=== PATIENT | female | born 1990 | race Caucasian/White ===

== ENCOUNTER 2020-10-13 20:58 | Emergency (ER) | payer MEDICARE, OTHER, SELFPAY ==
[2020-10-13] VITALS (10 sets, daily range): BP systolic 98–128; BP diastolic 45–86; PULSE 76–102; RESP 11–30; TEMP 36.8; O2SAT 94–99; BMI 34.4
--- NOTE | 2020-10-13 21:20 | XRR_ITS ---
PROCEDURE INFORMATION: Exam: XR Chest, 1 View Exam date and time: 10/13/2020 9:46 PM Age: 30 years old Clinical indication: Dyspnea; Additional info: Dyspnea/asthma TECHNIQUE: Imaging protocol: XR of the chest Views: 1 view. COMPARISON: No relevant prior studies available. FINDINGS: Lungs: Unremarkable. No consolidation. Pleural space: Unremarkable. No pleural effusion. No pneumothorax. Heart/Mediastinum: Unremarkable. No cardiomegaly. Bones/joints: Unremarkable. XR/XR chest 1V portable [id number] IMPRESSION: Lungs are clear.
[2020-10-13 21:44] LABS: Basophils # 0.1 10^3/uL (0.0-0.1); Basophils % 0.8 %; Eosinophils # 0.4 10^3/uL (0.0-0.8); Eosinophils % 4.4 %; Hematocrit 42.2 % (37.0-47.0); Hemoglobin 13.9 g/dL (11.5-15.3); Lymphocytes # 3.7 10^3/uL (0.8-4.8); Lymphocytes % 40.3 %; Mean Corpuscular HGB Conc 32.9 g/dL (30.0-36.0); Mean Corpuscular Hemoglobin 30.1 pg (28.0-34.0); Mean Corpuscular Volume 91.3 fL (81-99); Mean Platelet Volume 8.3 fL (7.4-10.4); Monocytes # 0.7 10^3/uL (0.2-0.9); Monocytes % 7.6 %; Neutrophils # 4.32 10^3/uL (1.8-7.7); Neutrophils % 46.7 %; Nucleated Red Blood Cells % 0 %; Platelet Count 379 10^3/cmm (130-400); Red Blood Count 4.62 10^6/uL (4.1-5.3); Red Cell Distribution Width 11.7 % (12.1-15.1); White Blood Count 9.2 10^3/uL (4.0-10.0)
[2020-10-13 22:01] LABS: ABG PCO2 36.4 mmHg (35-45); ABG PH Result 7.42 (7.35-7.45); Arterial Blood Gas Hematocrit 40.1 % (37-47); Base Excess ABG -0.4 mmol/L (-2.0-2.0); Blood Gas Allen Test Pos; Blood Gas Sample Site Radial, right; Blood Gas Sample Type Arterial; Carboxyhemoglobin 0.7 %THgb (0.4-20.1); HCO3 ABG 23.8 mmol/L (22-26); HGB O2 Sat 96.2 % (95-100); Methemoglobin 0.9 % (0.4-1.5); PO2 ABG 88.9 mmHg (80.0-100.0); Total Hemoglobin 13.1 g/dL (12-16)
[2020-10-13 22:09] LABS: Alanine Aminotransferase 18 U/L (0-33); Albumin Level 4.4 g/dL (3.5-5.2); Alkaline Phosphatase 69 IU/L (35-105); Anion Gap 12.8 (5-19); Aspartate Amino Transferase 14 U/L (0-32); Blood Urea Nitrogen 6 mg/dL (6-20); Calcium 9.6 mg/dL (8.5-10.5); Carbon Dioxide 25 mmol/L (22-29); Chloride 104 mmol/L (98-107); Creatinine Clr Calc Pharmacy 141.3207; Globulin 2.7 g/dL (1.3-4.6); Glomerular Filtration Rate 97.6 mL/min (90-130); Glucose 88 mg/dL (65-115); NT Pro B Type Natriuretic Pept 66 pg/mL (0-125); Osmolality Calculated 283 mOsm/kg (285-295); Potassium 3.8 mmol/L (3.5-5.1); Sodium 138 mmol/L (136-145); Total Bilirubin 0.2 mg/dL (0.15-1.2); Total Protein 7.1 g/dL (6.6-8.7)
[2020-10-13] MEDS: diphenhydrAMINE 50 mg/mL SDV 1mL 25 MG IVP (22:09)
[2020-10-13] MEDS: dexamethasone 4 mg/mL INJ 10 MG IM (22:13)
[2020-10-13] MEDS: sodium chloride 0.9% 1,000 ML 999 ML IV (22:14)
[2020-10-13 22:32] LABS: Lactate (Lactic Acid level) 1.6 mmol/L (0.5-2.2)
[2020-10-13 22:47] LABS: SARS Covid-2 Antigen Negative (Negative)
[2020-10-13 23:02] LABS: Lithium 0.5 mmol/L (0.6-1.2)
--- NOTE | 2020-10-13 23:06 | ED_ITS ---
HPI - SOB/Dyspnea General: Chief Complaint: Shortness of Breath/Dyspnea Stated Complaint: ASTHMA ATTACK Time Seen by Provider: 10/13/20 21:11 History of Present Illness: HPI Narrative: The patient is a 30-year-old female with past medical history asthma and bipolar disorder who comes to the ER complaining of a severe asthma attack after smelling bleach [place] the movie theater. She said she rarely has symptoms of her asthma but occasionally she will come across a set that will trigger it. She took 4 puffs of her albuterol inhaler which helps some but she is having a severe cough which will not stop. She says this is typical of her exacerbations. Lung sounds are clear to auscultation bilaterally. She says she is allergic to prednisone, it is not that she is actually allergic she says though the last time she received it it made her have suicidal ideations. MD elicited complaint: shortness of breath, cough and asthma attack Pertinent past history: asthma Context: allergen exposure and anxiety Severity: similar to previous episodes Relieving factors: bronchodilators Associated symptoms: Deny abdominal pain, chest pain, dizziness, extremity pain, orthopnea, palpitations or polyuria Treatment prior to arrival: bronchodilator Review of Systems General: Reports: 10 or more systems reviewed and unremarkable except in HPI and below Const: Denies: fatigue Eyes: Denies: change in vision, blurry vision or eye redness ENMT: Denies: throat pain, swelling of lips/tongue, ear or mastoid pain or nasal congestion Card: Denies: chest pain, palpitations, irregular heart rhythm, edema, dyspnea on exertion or orthopnea Resp: Reports: dyspnea, non-productive cough and wheezing GI: Denies: abdominal pain, diarrhea or GI cramping : Denies: flank pain, difficulty voiding, urinary frequency or urinary urgency Musc: Denies: neck pain, back pain, extremity pain, joint pain, joint redness, limited range of motion or muscle weakness Skin/Breast: Denies: rash, pruritus, erythema, skin pain or skin tenderness Neuro: Denies: headache(s), numbness in extremities, weakness in extremities, sensory changes, difficulty walking, dizziness, confusion or Slurred speech present Psych: Reports: anxiety; Denies: depression, suicidal ideation or homicidal ideation Endo: Denies: polyuria All/Imm: Denies: urticaria, throat swelling or tongue swelling Physical Exam Narrative: EXAM NARRATIVE: Patient has a severe repetitive cough on arrival. Her lungs are clear to auscultation bilaterally however. After Benadryl her symptoms improved greatly and she is now not coughing at all. Lungs clear to auscultation and she is asking for discharge Const: COMMON NORMALS: average body habitus, patient oriented x3, no limitations, healthy appearing, alert and well nourished GENERAL APPEARANCE: cooperative, comfortable, well kempt and well developed ORIENTATION/CONSCIOUSNESS: Yes awake, Yes oriented to person, Yes oriented to place and Yes oriented to time HENMT: COMMON NORMALS: normocephalic, external ears normal and Normal external nose present HEAD & SCALP: normal to inspection and normocephalic NOSE: Normal external nose present EXTERNAL EAR: Yes external ears normal MOUTH: Normal oral and palatal mucosa present THROAT: posterior oropharynx normal Eye: COMMON NORMALS: Equal, round and reactive pupils present and EOMs intact bilaterally GENERAL EYE: appearance normal, both eyes and all related structures PUPIL: Yes Equal, round and reactive pupils present Neck/C-Spine: COMMON NORMALS: full ROM, no lymphadenopathy, no meningeal signs and no JVD GENERAL: Yes normal visual inspection Lymph: LYMPHATIC: no lymphadenopathy noted Chest: COMMONS NORMALS: normal inspection of the chest and normal palpation of entire chest wall Resp: COMMON NORMALS: normal respiratory effort, No retractions, No use of accessory muscles and clear to auscultation bilaterally AUSCULTATION: clear to auscultation bilaterally Cardio: COMMON NORMALS: no JVD, regular rhythm, S1 normal heart sound present, S2 normal heart sound present and Peripheral pulses 2+ throughout RATE: tachycardic RHYTHM: regular rhythm HEART SOUNDS: S1 normal heart sound present and S2 normal heart sound present PERIPHERAL PULSES: Peripheral pulses 2+ throughout GI: COMMON NORMALS: Normal to inspection, nondistended, normoactive bowel sounds present, Soft to palpation, non-tender and no masses INSPECTION: Yes normal to inspection PALPATION: Yes Soft to palpation : COMMON NORMALS: Yes no CVA tenderness BLADDER/KIDNEY EXAM: Yes no CVA tenderness Back/Pelvis: COMMON NORMALS: no CVA tenderness, thoracic and lumbar spine normal to inspection, no thoracic nor lumbar tenderness and thoraco-lumbar ROM normal Extremity: COMMON NORMALS: normal to inspection, full ROM, capillary refill normal, no joint enlargement and no pedal edema GENERAL: Yes normal exam except as noted Neuro: COMMON NORMALS: patient oriented x3, CN's II-XII intact bilaterally, moves all extremities, no focal motor deficits, no sensory deficits noted and gait normal SENSORIUM/ORIENTATION: Yes alert, Yes oriented to person, Yes oriented to place and Yes oriented to time MENINGEAL SIGNS: Yes no meningeal signs Psych: COMMON NORMALS: mental status grossly normal, Normal thought process present, cooperative, normal affect and speech normal APPEARANCE: Yes well kempt ATTITUDE: Yes calm SPEECH: Yes normal speech THOUGHT PROCESS: Normal thought process present Skin: COMMON NORMALS: no rashes or lesions noted GENERAL SKIN EXAM: no rashes or lesions noted Course Vital Signs: Vital signs: Vital Signs Pulse Rate 77 10/13/20 23:15 Respiratory Rate 16 10/13/20 23:15 Blood Pressure 98/57 10/13/20 23:15 Pulse Oximetry 97 10/13/20 23:15 MDM - SOB/Dyspnea MDM Narrative: Medical decision making narrative: The patient came in with a severe repetitive cough. Her lungs have been clear to auscultation bilaterally her entire visit. She also has mental health bipolar disorder which could be playing a part. She received 25 mg Benadryl IV which greatly improved her cough and anxiety. She is now asymptomatic of disease and is stable for discharge home. She has an albuterol inhaler in her purse which has 180 puffs left. Will not give her prednisone because it gives her suicidal ideations. She received a shot of dexamethasone with no problems and no reaction. This should last her long enough as she needs. She says if she has suicidal thoughts she will return to the ER. Recommended follow-up with primary care physician in a few days to monitor improvement of symptoms and return to the ER with worsening symptoms Differential Diagnosis: Shortness of Breath Differential Diagnosis: Likely acute exacerbation of chronic obstructive airways disease and asthma with exacerbation Lab Data: Labs: Lab Results 10/13/20 10/13/20 10/13/20 Range/Units 21:35 21:35 21:40 WBC 9.2 (4.0-10.0) 10^3/ uL RBC 4.62 (4.1-5.3) 10^6/u L Hgb 13.9 (11.5-15.3) g/dL Hct 42.2 (37.0-47.0) % MCV 91.3 (81-99) fL MCH 30.1 (28.0-34.0) pg MCHC 32.9 (30.0-36.0) g/dL RDW 11.7 L (12.1-15.1) % Plt Count 379 (130-400) 10^3/c mm MPV 8.3 (7.4-10.4) fL Neut % (Auto) 46.7 % Lymph % (Auto) 40.3 % [place] % (Auto) 7.6 % Eos % (Auto) 4.4 % Baso % (Auto) 0.8 % Neut # (Auto) 4.32 (1.8-7.7) 10^3/u L Lymph # (Auto) 3.7 (0.8-4.8) 10^3/u L [place] # (Auto) 0.7 (0.2-0.9) 10^3/u L Eos # (Auto) 0.4 (0.0-0.8) 10^3/u L Baso # (Auto) 0.1 (0.0-0.1) 10^3/u L Nucleated RBC % (a uto) 0 % Nucleated RBCs # 0.0 /100WBC Specimen Type Arterial Sample Site Radial, right ABG pH 7.42 (7.35-7.45) ABG pCO2 36.4 (35-45) mmHg ABG pO2 88.9 (80.0-100.0) mmH g ABG HCO3 23.8 (22-26) mmol/L ABG Base Excess -0.4 (-2.0-2.0) mmol/ L Russ Test Pos Hematocrit 40.1 (37-47) % Hgb O2 Saturation 96.2 (95-100) % Carboxyhemoglobin 0.7 (0.4-20.1) %THgb Methemoglobin 0.9 (0.4-1.5) % Total Hemoglobin 13.1 (12-16) g/dL O2 Delivery Device None Audiology Director ID ellpe Sodium 138 (136-145) mmol/L Potassium 3.8 (3.5-5.1) mmol/L Chloride 104 (98-107) mmol/L Carbon Dioxide 25 (22-29) mmol/L Anion Gap 12.8 (5-19) BUN 6 (6-20) mg/dL Creatinine 0.7 (0.5-0.9) mg/dL GFR Calculation 97.6 (90-130) mL/min Glucose 88 (65-115) mg/dL Calculated Osmolal ity 283 L (285-295) mOsm/k g Lactate (0.5-2.2) mmol/L Calcium 9.6 (8.5-10.5) mg/dL Total Bilirubin 0.2 (0.15-1.2) mg/dL AST 14 (0-32) U/L ALT 18 (0-33) U/L Alkaline Phosphata se 69 (35-105) IU/L NT-Pro-B Natriuret Pep 66 (0-125) pg/mL Total Protein 7.1 (6.6-8.7) g/dL Albumin 4.4 (3.5-5.2) g/dL Globulin 2.7 (1.3-4.6) g/dL [place] (0.6-1.2) mmol/L SARS-CoV-2 Ag (Rap id) (Negative) 10/13/20 10/13/20 10/13/20 Range/Units 22:08 22:08 22:18 WBC (4.0-10.0) 10^3/ uL RBC (4.1-5.3) 10^6/u L Hgb (11.5-15.3) g/dL Hct (37.0-47.0) % MCV (81-99) fL MCH (28.0-34.0) pg MCHC (30.0-36.0) g/dL RDW (12.1-15.1) % Plt Count (130-400) 10^3/c mm MPV (7.4-10.4) fL Neut % (Auto) % Lymph % (Auto) % [place] % (Auto) % Eos % (Auto) % Baso % (Auto) % Neut # (Auto) (1.8-7.7) 10^3/u L Lymph # (Auto) (0.8-4.8) 10^3/u L [place] # (Auto) (0.2-0.9) 10^3/u L Eos # (Auto) (0.0-0.8) 10^3/u L Baso # (Auto) (0.0-0.1) 10^3/u L Nucleated RBC % (a uto) % Nucleated RBCs # /100WBC Specimen Type Sample Site ABG pH (7.35-7.45) ABG pCO2 (35-45) mmHg ABG pO2 (80.0-100.0) mmH g ABG HCO3 (22-26) mmol/L ABG Base Excess (-2.0-2.0) mmol/ L Russ Test Hematocrit (37-47) % Hgb O2 Saturation (95-100) % Carboxyhemoglobin (0.4-20.1) %THgb Methemoglobin (0.4-1.5) % Total Hemoglobin (12-16) g/dL O2 Delivery Device Audiology Director ID Sodium (136-145) mmol/L Potassium (3.5-5.1) mmol/L Chloride (98-107) mmol/L Carbon Dioxide (22-29) mmol/L Anion Gap (5-19) BUN (6-20) mg/dL Creatinine (0.5-0.9) mg/dL GFR Calculation (90-130) mL/min Glucose (65-115) mg/dL Calculated Osmolal ity (285-295) mOsm/k g Lactate 1.6 (0.5-2.2) mmol/L Calcium (8.5-10.5) mg/dL Total Bilirubin (0.15-1.2) mg/dL AST (0-32) U/L ALT (0-33) U/L Alkaline Phosphata se (35-105) IU/L NT-Pro-B Natriuret Pep (0-125) pg/mL Total Protein (6.6-8.7) g/dL Albumin (3.5-5.2) g/dL Globulin (1.3-4.6) g/dL [place] 0.5 L (0.6-1.2) mmol/L SARS-CoV-2 Ag (Rap id) Negative (Negative) Discharge Plan Discharge Patient Disposition: Home Clinical Impression: Asthma with exacerbation Qualifiers: Asthma severity: mild Asthma persistence: intermittent Qualified Code(s): J45.21 - Mild intermittent asthma with (acute) exacerbation Condition: Stable Discharge Orders: Discharge ED (Routine); Ordered 10/13/20 Ordered By: Luis Alberto Kelly Discharge Diet: Advance as tolerated Discharge Activity: Resume usual activity Patient Instructions: Asthma (ED) Activity Restrictions/Additional Instructions: You have had an asthma attack related to allergen exposure. Please try to avoid exposure to allergens and keep your albuterol inhaler with you. Return to the ER with worsening symptoms or any thoughts of suicidal ideations. 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
== END 2020-10-13 23:35 | disposition home or self-care (01) ==
PROVIDERS: Emergency Provider Family Medicine
DX: J45.21 Mild intermittent asthma with (acute) exacerbation (principal)
CPT/HCPCS: 12345; 36600; 71045; 80053; 80178; 82805; 83605; 83880; 85025; 87426; 94640; 96361; 96372; 96374; 99283; 99284; J1100; J1200; J3535; J7030

== ENCOUNTER 2022-05-23 08:19 | Outpatient (CLI) | payer MEDICARE, OTHER, SELFPAY ==
[2022-05-23 09:16] LABS: Basophils % 0.6 %; Eosinophils # 0.3 10^3/uL (0.0-0.8); Hematocrit 40.3 % (37.0-47.0); Hemoglobin 13.6 g/dL (11.5-15.3); Lymphocytes # 2.1 10^3/uL (0.8-4.8); Lymphocytes % 31.1 %; Mean Corpuscular HGB Conc 33.7 g/dL (30.0-36.0); Mean Corpuscular Hemoglobin 31.5 pg (28.0-34.0); Mean Corpuscular Volume 93.3 fl (81-99); Mean Platelet Volume 8.2 fL (7.4-10.4); Monocytes # 0.4 10^3/uL (0.2-0.9); Monocytes % 6.4 %; Neutrophils % 57.8 %; Nucleated Red Blood Cells % 0 %; Platelet Count 254 10^3/cmm (130-400); Red Blood Count 4.32 10^6/uL (4.1-5.3); Red Cell Distribution Width 11.7 % (12.1-15.1); White Blood Count 6.8 10^3/uL (4.0-10.0)
[2022-05-23 09:43] LABS: Lithium 0.5 mmol/L (0.6-1.2)
[2022-05-23 09:49] LABS: Alanine Aminotransferase 10 U/L (0-33); Albumin Level 4.5 g/dL (3.5-5.2); Alkaline Phosphatase 49 IU/L (35-105); Aspartate Amino Transferase 9 U/L (0-32); Blood Urea Nitrogen 6 mg/dL (6-20); Carbon Dioxide 26 mmol/L (22-29); Chloride 104 mmol/L (98-107); Chol HDL Ratio 3.37 mg/dL (0.0-4.40); Cholesterol 175 mg/dL (0-200); Globulin 1.9 g/dL (1.3-4.6); Glomerular Filtration Rate 115.9 mL/min (90-130); Glucose 95 mg/dL (65-115); HDL Cholesterol 52 mg/dL (60-100); LDL Cholesterol Calculated 106 mg/dL (50-129); LDL HDL Ratio 2.04 RATIO (0.00-3.22); Osmolality Calculated 285 mOsm/kg (285-295); Sodium 139 mmol/L (136-145); Thyroid Stimulating Hormone 2.83 uIU/mL (0.27-4.20); Total Bilirubin 0.3 mg/dL (0.15-1.2); Total Protein 6.4 g/dL (6.6-8.7); Triglycerides 87 mg/dL (0-150)
[2022-05-23 10:05] LABS: Estmated Average Glucose 88; Hemoglobin A1C 4.7 % (4.0-6.0)
== END 2022-05-23 08:20 | disposition home or self-care (01) ==
LOC: LAB 08:26
PROVIDERS: Visit Provider Psychiatry & Neurology Psychiatry
DX: F31.9 Bipolar disorder, unspecified (principal); Z79.899 Other long term (current) drug therapy
CPT/HCPCS: 36415; 80053; 80061; 80178; 83036; 84443; 85025

== ENCOUNTER → 2022-06-03 07:28 | Outpatient (BNVA) | payer MEDICARE, OTHER, SELFPAY | PROVIDERS: PCP Family Medicine; Visit Provider Otolaryngology | DX: H66.93 Otitis media, unspecified, bilateral (principal); H69.83 Other specified disorders of Eustachian tube, bilateral; J30.0 Vasomotor rhinitis | CPT/HCPCS: 99203 ==

== ENCOUNTER → 2022-08-13 12:38 | Outpatient (BNVA) | payer MEDICARE, SELFPAY | PROVIDERS: Visit Provider Emergency Medicine | DX: J02.9 Acute pharyngitis, unspecified (principal); R05.8 Other specified cough | CPT/HCPCS: 87071; 87880 ==

== ENCOUNTER → 2022-12-01 16:02 | Outpatient (BNVA) | payer MEDICARE, SELFPAY | PROVIDERS: PCP Family Medicine; Visit Provider Family Medicine | DX: E55.9 Vitamin D deficiency, unspecified (principal); F31.9 Bipolar disorder, unspecified | CPT/HCPCS: 80053; 80178; 82306; 84443 ==

== ENCOUNTER 2023-01-27 08:14 | Outpatient (CLI) | payer MEDICARE, SELFPAY ==
--- NOTE | 2023-01-27 08:25 | US_ITS ---
WS: [id number] US transvaginal [id number] HISTORY: rlq pain COMPARISON: None available. Prior hysterectomy. No midline mass identified. Right ovary: 3.1 cm x 2.5 cm x 2.0 cm. Normal size ovary. No solid mass. Normal vascularity. There ar e several follicles within the RIGHT ovary. There is a thin septation in one of the follicles. Left ovary: Status post oophorectomy. No adnexal mass. No free fluid in the pelvis. US/US transvaginal [id number] IMPRESSION: 1. Status post hysterectomy and LEFT oophorectomy. 2. Normal size RIGHT ovary with several small follicles. No cystic or solid ma ss.
== END 2023-01-27 08:15 | disposition home or self-care (01) ==
PROVIDERS: PCP Family Medicine; Visit Provider Family Medicine
DX: R10.31 Right lower quadrant pain (principal); Z90.710 Acquired absence of both cervix and uterus; Z90.721 Acquired absence of ovaries, unilateral
CPT/HCPCS: 76830

== ENCOUNTER → 2023-04-03 13:11 | Outpatient (BNVA) | payer MEDICARE, SELFPAY | PROVIDERS: PCP Family Medicine; Visit Provider Nurse Practitioner Family | DX: S59.901A Unspecified injury of right elbow, initial encounter (principal); X58.XXXA Exposure to other specified factors, initial encounter | CPT/HCPCS: 73080 ==

== ENCOUNTER 2023-04-09 23:55 | Outpatient (CLI) | payer MEDICARE, SELFPAY ==
--- NOTE | 2023-01-20 16:12 | XRR_ITS ---
PROCEDURE INFORMATION: Exam: XR Abdomen Exam date and time: 01/20/2023 4:19 PM Age: 32 years old Clinical indication: Abdominal pain; Localized; Right lower quadrant (rlq); Prior surgery; Surgery type: Hystorectomy, appendectomy; Patient HX: Rlq abdomen pain, for 2 weeks, HX endometriosis surgery 2017; Additional info: Rlq pain TECHNIQUE: Imaging protocol: Radiologic exam of the abdomen. Views: Frontal supine view of the abdomen. 1 View. COMPARISON: CR XR chest 1V portable [id number] 10/13/2020 9:35 PM FINDINGS: Gastrointestinal tract: Nonobstructive intestinal gas pattern demonstrated. Bones/joints: No acute fracture or other acute osseous abnormality. Soft tissues: The soft tissues are unremarkable as demonstrated. XR/XR KUB [id number] IMPRESSION: No acute abnormality demonstrated.
== END 2023-04-09 23:56 | disposition home or self-care (01) ==
LOC: RAD 23:56
PROVIDERS: PCP Family Medicine; Visit Provider Family Medicine
DX: Z01.89 Encounter for other specified special examinations (principal); R10.31 Right lower quadrant pain
CPT/HCPCS: 74018; 81000

== ENCOUNTER → 2023-07-13 11:06 | Outpatient (BNVA) | payer MEDICARE, SELFPAY | PROVIDERS: PCP Family Medicine; Visit Provider Psychiatry & Neurology Psychiatry | DX: F31.9 Bipolar disorder, unspecified (principal); Z79.899 Other long term (current) drug therapy; R53.83 Other fatigue; F60.3 Borderline personality disorder | CPT/HCPCS: 80053; 80061; 80178; 83036; 84443; 85025 ==

== ENCOUNTER → 2023-08-04 18:41 | Outpatient (BNVA) | payer MEDICARE, SELFPAY | PROVIDERS: PCP Family Medicine; Visit Provider Registered Nurse Neonatal Intensive Care | DX: R30.0 Dysuria (principal); N39.0 Urinary tract infection, site not specified; H66.005 Acute suppurative otitis media without spontaneous rupture of ear drum, recurrent, left ear; R39.9 Unspecified symptoms and signs involving the genitourinary system | CPT/HCPCS: 81000; 87086 ==

== ENCOUNTER 2023-12-16 13:36 | Outpatient (CLI) | payer MEDICARE, SELFPAY ==
[2023-12-16 14:20] LABS: Basophils # 0.1 10^3/uL (0.0-0.1); Basophils % 0.7 %; Eosinophils # 0.3 10^3/uL (0.0-0.8); Eosinophils % 4.3 %; Hematocrit 40.3 % (36-47); Lymphocytes # 2.5 10^3/uL (0.8-4.8); Lymphocytes % 34.2 %; Mean Corpuscular HGB Conc 33.5 g/dL (30-55); Mean Corpuscular Hemoglobin 30.7 pg (27-33); Mean Corpuscular Volume 91.6 fl (85-98); Mean Platelet Volume 8.2 fL (7.4-10.4); Monocytes # 0.6 10^3/uL (0.2-0.9); Monocytes % 7.6 %; Neutrophils # 3.83 10^3/uL (1.8-7.7); Neutrophils % 53.1 %; Nucleated Red Blood Cells % 0 %; Platelet Count 236 10^3/cmm (157-399); Red Cell Distribution Width 11.5 % (12.1-15.1); White Blood Count 7.22 10^3/uL (3.29-11.43)
[2023-12-16 14:42] LABS: Alanine Aminotransferase 12 U/L (0-33); Albumin Level 4.1 g/dL (3.5-5.2); Alkaline Phosphatase 55 U/L (35-105); Anion Gap 13.2 (5-19); Aspartate Amino Transferase 11 U/L (0-32); Blood Urea Nitrogen 8 mg/dL (6-20); Calcium 9.1 mg/dL (8.5-10.5); Carbon Dioxide 27 mmol/L (22-29); Chloride 103 mmol/L (98-107); Globulin 2.2 g/dL (1.3-4.6); Glomerular Filtration Rate 114.4 mL/min (90-130); Glucose 80 mg/dL (65-115); Magnesium 1.7 mg/dL (1.7-2.3); Osmolality Calculated 285 mOsm/kg (285-295); Potassium 4.2 mmol/L (3.5-5.1); Sodium 139 mmol/L (136-145); Total Bilirubin 0.2 mg/dL (0.15-1.2); Total Protein 6.3 g/dL (6.6-8.7)
== END 2023-12-16 13:37 | disposition home or self-care (01) ==
LOC: LAB 13:40
PROVIDERS: PCP Family Medicine; Visit Provider Nurse Practitioner
DX: R63.1 Polydipsia (principal)
CPT/HCPCS: 36415; 80053; 81000; 83735; 85025

== ENCOUNTER → 2024-02-11 14:07 | Outpatient (BNVA) | payer MEDICARE, SELFPAY | PROVIDERS: PCP Family Medicine; Visit Provider Registered Nurse Neonatal Intensive Care | DX: R07.9 Chest pain, unspecified (principal) | CPT/HCPCS: 93005 ==

== ENCOUNTER → 2024-03-22 16:00 | Outpatient (BNVA) | payer MEDICARE, SELFPAY | PROVIDERS: PCP Family Medicine; Visit Provider Family Medicine | DX: R00.2 Palpitations (principal); D50.9 Iron deficiency anemia, unspecified | CPT/HCPCS: 80053; 82728; 83550; 84443 ==

== ENCOUNTER → 2024-07-21 15:48 | Outpatient (BNVA) | payer MEDICARE, SELFPAY | PROVIDERS: PCP Family Medicine; Visit Provider Psychiatry & Neurology Psychiatry | DX: F31.9 Bipolar disorder, unspecified (principal); Z79.899 Other long term (current) drug therapy | CPT/HCPCS: 80053; 80061; 80178; 83036; 84443 ==

== ENCOUNTER → 2024-08-01 15:44 | Outpatient (BNVA) | payer MEDICARE, SELFPAY | PROVIDERS: PCP Family Medicine | DX: J02.9 Acute pharyngitis, unspecified (principal) | CPT/HCPCS: 87880 ==

== ENCOUNTER → 2024-08-11 15:06 | Outpatient (BNVA) | payer MEDICARE, SELFPAY | PROVIDERS: PCP Family Medicine; Visit Provider Internal Medicine Cardiovascular Disease | DX: R07.9 Chest pain, unspecified (principal); I49.8 Other specified cardiac arrhythmias; R94.31 Abnormal electrocardiogram [ECG] [EKG] | CPT/HCPCS: 93005 ==

== ENCOUNTER 2024-08-30 06:51 | Outpatient (CLI) | payer MEDICARE, SELFPAY ==
--- NOTE | 2024-08-30 06:15 | USCV_ITS ---
Shani Hodge Age: 34 Gender: F : 1990 Exam Date: 08/30/2024 07:03 Ordering Phys: Hamida Desai MD ([email or web address]) Technologist: Exam Location: [facility] [place] Indication: cp sob BP: 110 / 65 HR: 81 Rhythm: Sinus Technical Quality: Adequate MEASUREMENTS (Male / Female) Normal Values 2D ECHO LV Diastolic Diameter PLAX 4.5 cm 4.2 - 5.9 / 3.9 - 5.3 cm IVS Diastolic Thickness 1.1 cm 0.6 - 1.0 / 0.6 - 0.9 cm IVS Systolic Thickness 1.3 cm LVPW Diastolic Thickness 1.0 cm 0.6 - 1.0 / 0.6 - 0.9 cm LVPW Systolic Thickness 1.2 cm LVOT Diameter 2.0 cm LV Ejection Fraction 2D Teich 69.2 % LV Ejection Fraction MOD 4C 62.8 % LV Ejection Fraction MOD 2C 64.7 % LV Ejection Fraction 2C AL 65.8 % LA Diameter 2.7 cm RA Systolic Volume 4C AL 30.1 ml RA Systolic Volume 4C MOD 27.1 ml LA Sys Volume AL 41.3 cm cubed LA Sys Volume Index AL 19.2 cm cubed/m squared Aorta at Sinotubular Diameter 2.1 cm IVC Diameter 1.8 cm M-MODE LA Ao Ratio MM 1.2 AV Cusp Separation MM 2.2 cm DOPPLER AV Peak Velocity 122.0 cm/s LVOT Peak Velocity 92.0 cm/s AV Area Cont Eq vti 2.9 cm squared AV Area Cont Eq pk 2.4 cm squared MV Peak Velocity 101.0 cm/s MV Area PHT 6.6 cm squared Mitral E to A Ratio 1.3 TV Peak Velocity 183.5 cm/s TR Peak Velocity 205.0 cm/s TR Peak Gradient 16.8 mmHg TV Peak E Velocity 79.0 cm/s Right Atrial Pressure 3.0 mmHg Pulmonary Artery Systolic Pressu 19.8 mmHg PV Peak Velocity 114.0 cm/s FINDINGS Left Ventricle Normal left ventricular size, systolic function and wall thickness, with no regional wall motion abnormalities. Left ventricular ejection fraction is estimated at 60 %. Normal left ventricular filling pressure. Right Ventricle The right ventricle is normal in size and function. Right Atrium The right atrium is normal in size. Left Atrium The left atrium is normal in size. Mitral Valve Thickened mitral valve. No mitral valve stenosis. Trace mitral valve regurgitation. Aortic Valve Mild aortic valve calcification. No aortic valve stenosis. Trace aortic valve regurgitation. Tricuspid Valve Mild to modeate tricuspid valve regurgitation. Pulmonic Valve Structurally normal pulmonic valve without significant stenosis. There is no pulmonic regurgitation. Pericardium Normal pericardium without effusion. Aorta Normal ascending aorta dimension. IVC The inferior vena cava appears normal. CONCLUSIONS Normal left ventricular size, systolic function and wall thickness, with no regional wall motion abnormalities. Left ventricular ejection fraction is estimated at 60 %. Normal left ventricular filling pressure. Mild aortic valve calcification. No aortic valve stenosis. Trace aortic valve regurgitation. There is no pericardial effusion. Pulmonary artery systolic pressure is within normal limits. Right atrial pressure is around 5 mm of mercury. Hamida Desai MD (Electronically Signed) Final Date: 30 August 2024 19:20 S
== END 2024-08-30 06:52 | disposition home or self-care (01) ==
LOC: RAD 06:52
PROVIDERS: PCP Family Medicine; Visit Provider Internal Medicine Cardiovascular Disease
DX: I36.1 Nonrheumatic tricuspid (valve) insufficiency (principal); I34.81 Nonrheumatic mitral (valve) annulus calcification; R00.2 Palpitations; R00.0 Tachycardia, unspecified; R06.02 Shortness of breath
CPT/HCPCS: 93306

== ENCOUNTER 2024-11-06 10:10 | Outpatient (CLI) | payer MEDICARE, SELFPAY ==
--- NOTE | 2024-11-06 10:21 | XRR_ITS ---
PROCEDURE INFORMATION: Exam: XR Left Elbow Exam date and time: 11/06/2024 10:24 AM Age: 34 years old Clinical indication: Pain and injury or trauma; Fall; Blunt trauma (contusions or hematomas); Elbow; Left; Additional info: Trauma lt elbow pain TECHNIQUE: Imaging protocol: Radiologic exam of the left elbow. Views: 3 or more views. COMPARISON: No relevant prior studies available. FINDINGS: Bones/joints: Normal. Soft tissues: Normal. XR/XR elbow LT min 3V* [id number] IMPRESSION: No acute fracture or dislocation.
== END 2024-11-06 10:11 | disposition home or self-care (01) ==
PROVIDERS: PCP Family Medicine; Visit Provider Emergency Medicine
DX: M25.522 Pain in left elbow (principal); W19.XXXA Unspecified fall, initial encounter
CPT/HCPCS: 73080

== ENCOUNTER → 2024-11-15 10:29 | Outpatient (BNVA) | payer MEDICARE, SELFPAY | PROVIDERS: PCP Family Medicine; Visit Provider Physician Assistant | DX: M25.522 Pain in left elbow; S59.902A Unspecified injury of left elbow, initial encounter; W18.39XA Other fall on same level, initial encounter; Y93.51 Activity, roller skating (inline) and skateboarding | CPT/HCPCS: 73080; 99203 ==

== ENCOUNTER → 2024-11-25 09:07 | Outpatient (BNVA) | payer MEDICARE, SELFPAY | PROVIDERS: PCP Family Medicine; Visit Provider Physician Assistant | DX: S59.902A Unspecified injury of left elbow, initial encounter (principal); W19.XXXA Unspecified fall, initial encounter | CPT/HCPCS: 73080; 99213 ==